=== PATIENT | female | born 1935 | race Caucasian/White ===

== ENCOUNTER 2018-06-06 02:49 | Inpatient (IN) | payer MEDICARE ==
[2018-06-06] MEDS ORDERED: niCARdipine 20MG In NaCl 20 MG/200 ML BAG ONE (03:02)
[2018-06-06 03:52] LABS: Prothrombin Time 13.3 SEC (12.0-14.7)
[2018-06-06 03:53] LABS: PTT 26.2 SEC (22.9-36.1)
[2018-06-06 04:35] LABS: Bilirubin Negative (Negative); Blood, Urine Negative (Negative); Clarity CLOUDY (Clear); Glucose, Urine (Dipstick) Negative (Negative); Leukocyte Trace (Negative); Nitrite Negative (Negative); Protein, Urine (Dipstick) 30 mg/dL (Neg-Trace); Specific Gravity, Urine 1.011 (1.002-1.036); Urobilinogen 0.2 mg/dL (0.2-1.0); pH, Urine 6.5 (5.0-9.0)
[2018-06-06 04:37] LABS: Bacteria/HPF 1+ HPF (None Seen); Hyaline Casts/LPF 0-3 HYALINE CAST LPF (0-3 Hyaline); Pathc Cast-AUWi Flag 0.27 (0-2.49); RBC/HPF 0-3 HPF (0-3); Squamous Epithelial 0-3 HPF (0-3)
[2018-06-06] MEDS ORDERED: cefTRIAXone\\ROCEPHIN 1 GM VIAL ONE (05:17)
[2018-06-06 06:50] VITALS: BMI 21.6
[2018-06-06] MEDS ORDERED: niCARdipine HCl 25 MG in Sodium Chloride 0.9% 250 ML 240 ML IVPB SCH (07:00)
--- NOTE | 2018-06-06 07:01 | CT ---
CERVICAL SPINE CT NONCONTRAST: Date: 06/06/18 INDICATION: Neck pain related to fall. FINDINGS: Moderate multilevel degenerative change throughout the cervical spine is present. There is reversal o f normal cervical spine curvature. No evidence of acute compression fracture or subluxation. IMPRESSION: No acute osseous abnormality of the cervical spine. POS: AWAIS
[2018-06-06] MEDS ORDERED: traMADol HCl 50 MG TAB PO PRN (07:40)
[2018-06-06] MEDS ORDERED: hydrALAZINE 20 MG/ML VIAL SLOW IVP PRN (07:40)
[2018-06-06] MEDS ORDERED: Dextrose 5% in Water 1,000 ML IV PRN (07:40)
[2018-06-06] MEDS ORDERED: Sodium Chloride 0.9% 1,000 ML IV SCH (07:40)
[2018-06-06] MEDS ORDERED: Ondansetron ODT 4 MG TAB PO PRN (07:40)
[2018-06-06] MEDS ORDERED: Ondansetron PF 4 MG/2 ML Vial IVP PRN (07:40)
[2018-06-06] MEDS ORDERED: Dextrose 50% Abboject 50 ML SYRINGE SLOW IVP PRN (07:40)
[2018-06-06] MEDS ORDERED: Acetaminophen 1,000 MG in Premix Bag 1 BAG IVPB SCH (08:00)
--- NOTE | 2018-06-06 08:04 | RAD ---
EXAM: Single view of the chest HISTORY: Confusion; follow-up left pneumothorax COMPARISON: None FINDINGS: Single view of the chest shows a normal sized cardiomediastinal silhouette. Increased inter stitial markings are present. There is no evidence of consolidation, mass, or pleural effusion. The bones are unremarkable. IMPRESSION: No evidence of acute cardiopulmonary disease
--- NOTE | 2018-06-06 08:22 | HP ---
REQUESTING PHYSICIAN: Dr. Kaur. ATTENDING SURGEON: Dr. Johnson. CONSULTATIONS: Neurosurgery, Dr. Briscoe. HISTORY OF PRESENT ILLNESS: The patient is an 82-year-old female who was brought to our emergency department from [facility] where she was taken there after family noted that she had fallen possibly a few hours prior to presenting to that emergency department. The patient was brought there with left-sided chest wall pain and headache, which had resolved by the time she got to our Emergency Department. There, she was noted to have left ribs 4 through 8 fractured with small hemothorax and small subarachnoid hemorrhage, at which time she was transferred to our facility for admission and Neurosurgical consultation. The patient does suffer from dementia, but according to our report she is at her baseline. ALLERGIES: NONE. CURRENT MEDICATIONS: 1. Amlodipine. 2. Atorvastatin. 3. Carvedilol. 4. Donepezil. 5. Gabapentin. 6. Meloxicam. 7. Mirtazapine. 8. Multivitamin. 9. Omeprazole. 10. Sertraline. 11. Vitamin D3. PAST MEDICAL HISTORY: Peripheral neuropathy, DJD, DDD, hypertension, Parkinson's, Alzheimer/dementia, and hyperlipidemia. PAST SURGICAL HISTORY: Bowel resection x2 and hysterectomy. SOCIAL HISTORY: The patient lives at home with family. There is no history of drug, tobacco, or alcohol use. REVIEW OF SYSTEMS: A 10-point review of systems is negative as otherwise stated. PHYSICAL EXAMINATION: VITAL SIGNS: Blood pressure 142/66, respirations 16, oxygen saturation 92% on 2 L via nasal cannula, heart rate 86, temperature 98.3. GENERAL: The patient is resting comfortably in bed. She appears in no distress. She answers questions appropriately from what we can tell without family by. She follows commands. She does become irritated quite quickly. From the ER report, this is her baseline. HEENT: Head is normocephalic and atraumatic. Extraocular motions intact. PERRLA bilaterally. Ears are atraumatic without discharge. Nose is atraumatic without discharge. Oropharynx is clear. NECK: Nontender. Trachea is midline. The patient is able to be cleared out of her pre-hospital C collar. LUNGS: Clear to auscultation with good inspiratory and expiratory effort. HEART: Regular rate and rhythm. ABDOMEN: Soft, flat, and nontender with active bowel sounds. PELVIS: Stable. Of note, the patient did have slight tenderness to palpation to her left chest wall. ABDOMEN: Soft, flat, and nontender. PELVIS: Stable. EXTREMITIES: Neurovascularly intact x4. The patient moves all 4 extremities with ease. BACK: Atraumatic and nontender. LABORATORY FINDINGS: WBCs 10.5, hemoglobin 12.6, hematocrit 37.7, platelets 253. Sodium 141, potassium 3.2, chloride 100, CO2 of 28, BUN 22, creatinine 1.45, glucose 111. LFTs are unremarkable. Troponin 0.029. PT 13, INR 1.0, PTT 26. Urinalysis shows trace protein, trace LE, 11 to 20 wbc's, and 1+ bacteria. RADIOGRAPHIC REPORTS: CT of the brain without contrast shows a small subarachnoid hemorrhage. CT of the C-spine without contrast shows no acute osseous abnormality of the cervical spine. CT of the chest without contrast shows fractures of left ribs 4 through 8. ASSESSMENT: 1. Status post ground level fall. 2. Subarachnoid hemorrhage. 3. Multiple left-sided rib fractures. 4. Acute on chronic kidney injury. 5. Urinary tract infection. 6. History of dementia. 7. History of hypertension. PLAN: Plan will be to admit the patient to the critical care unit for serial exams and repeat head CT this morning. Of note, the patient was put on a Cardene drip last night because of her systolic blood pressure being 190 and we will wean her off this and get her morning medications started in hopes to control this blood pressure better and be able to get her discharged or transferred for placement. The evaluation, examination, laboratory, and radiographic findings will be discussed with Dr. Champion this morning during rounds. Job ID: [id number]
--- NOTE | 2018-06-06 08:22 | CT ---
Exam: CT brain without contrast HISTORY: Subarachnoid hemorrhage COMPARISON: 06/06/2018 at 1:01 AM TECHNIQUE: Multiple contiguous axial images were obtained and a CT of the brain without contrast. FINDINGS: There are scattered hypodensities in the subcortical and periventricular white matter consi stent with small vessel ischemic disease. There is a stable area of hyperdensity in the left parieto-occipital region consistent with a small amount of subarachnoid hemorrhage. There is no evide nce of hydrocephalus or extra-axial fluid collection. The calvarium and overlying soft tissues are unremarkable. The visualized paranasal sinuses and masto id air cells are well aerated. IMPRESSION: Stable subarachnoid hemorrhage
[2018-06-06] MEDS ORDERED: Famotidine 20 MG TAB PO SCH (09:00)
[2018-06-06] MEDS ORDERED: Cyclobenzaprine 10 MG TAB PO PRN (09:00)
[2018-06-06 09:14] VITALS: TEMP 97.8
--- NOTE | 2018-06-06 11:01 | PRG ---
DATE OF SERVICE: SUBJECTIVE: Darlyn Falk suffered a fall, suffered a nonoperative subarachnoid hemorrhage and rib fractures left 4 through 8. She has been observed in ICU. Repeat brain CAT scan this morning does not reveal any changes. The patient has baseline dementia and is at her baseline renal function. She is slightly confused, does not know the date, but she knows that she is in the hospital. She does converse appropriate for her dementia . OBJECTIVE: LUNGS: Clear to auscultation. CARDIAC: Regular rate and rhythm without murmur or gallop. ABDOMEN: Soft, nontender. EXTREMITIES: Unremarkable. LABORATORY DATA: Laboratories were not repeated this morning. ASSESSMENT AND PLAN: The patient is stable from a fall. She can resume her home medication. She will need to be weaned off her Cardene drip and placed on her home medications. She can be discharged home later today or tomorrow pending family discussion. Job ID: [id number]
--- NOTE | 2018-06-06 11:09 | CON ---
DATE OF CONSULTATION: 06/06/2018 HISTORY OF PRESENT ILLNESS: Ms. Darlyn Falk is an 82-year-old female with history significant to include dementia and Parkinson disease. She lives in [place] with her niece, who cares for her. She fell yesterday at home and EMS was called stating that she was sore on the left side of her body. She was taken to [place] ER, where a small subarachnoid hemorrhage was found along with four rib fractures 4 through 8, and she has UTI. Neurosurgery was consulted with small subarachnoid hemorrhage. When I entered the room, she was alert and oriented to person. She is very confused about her location and what is happening with her. Per EMS notes and hospital notes from [place], lenora states that she is at her baseline. REVIEW OF SYSTEMS: A 10-point review of systems has been completed and is negative, otherwise stated in the above HPI. ALLERGIES: NO KNOWN DRUG ALLERGIES. MEDICATIONS: 1. Amlodipine. 2. Atorvastatin. 3. Carvedilol. 4. Donepezil. 5. Gabapentin. 6. Meloxicam. 7. Mirtazapine. 8. Multivitamin. 9. Omeprazole. 10. Sertraline. 11. Vitamin D3. PAST MEDICAL HISTORY: Dementia, Parkinson's, hypertension, hyperlipidemia, esophageal reflux. PAST SURGICAL HISTORY: Bowel resection x2, hysterectomy. SOCIAL HISTORY: The patient denies alcohol, drug or smoking history. PHYSICAL EXAMINATION: VITAL SIGNS: Blood pressure 154/70, heart rate 85, respirations 18, and O2 saturation 92% on 2 L of oxygen. CONSTITUTIONAL: The patient is alert, oriented to person. She is confused and does not appear to be in any visible distress. She does complain of pain in her left side. HEENT: Head is normocephalic and atraumatic. Pupils are equal, round, and reactive to light. Extraocular movements are intact. Hearing is intact. Moist mucous membranes. RESPIRATIONS: Normal work of breathing on room air. Symmetric chest rise. EXTREMITIES: The patient is moving all 4 extremities well. There are no gross deformities. 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 No sensory changes. NEUROLOGIC: The patient is alert, oriented to person. Her speech is spontaneous and fluent. Her long-term memory is intact. Short-term memory is significantly impaired. She has [place] Coma scale of 15. She is following commands well. Cranial nerves 2 through 12 are tested and intact. She has no sensory or motor deficits at this time. IMAGING: CT head shows a small left parieto-occipital subarachnoid hemorrhage. CT chest shows left 4 through 8 rib fractures with a small hemothorax. ASSESSMENT AND PLAN: From a neurosurgical standpoint, Ms. Falk is an 82-year-old female with a small arachnoid hemorrhage without being on any blood thinners. She is neurologically intact. We will have Trauma admit for her other injuries. We will get neuro checks regularly and repeat the CT in 6 to 8 hours following her first scan, 7 or 8 a.m. today would be appropriate. We do not anticipate any surgical intervention necessary for this patient. Maintain blood pressure below 160. No blood thinners. Job ID: [id number]
[2018-06-06] MEDS ORDERED: Acetaminophen 500 MG TAB PO SCH (12:00)
[2018-06-06 16:33] VITALS: BP 150/72
[2018-06-06] MEDS ORDERED: Carvedilol 3.125 MG TAB PO SCH (17:00)
[2018-06-06] MEDS ORDERED: Donepezil HCl 10 MG TAB PO SCH (21:00)
[2018-06-07] MEDS ORDERED: Amlodipine 10 MG TAB PO SCH (09:00)
--- NOTE | 2018-06-07 11:37 | DIS ---
DATE OF ADMISSION: 06/06/2018 DATE OF DISCHARGE: 06/06/2018 ADMISSION DIAGNOSES: 1. Status post ground-level fall. 2. Subarachnoid hemorrhage. 3. Multiple left-sided rib fracture. 4. Acute on chronic kidney injury. 5. Urinary tract infection. 6. History of dementia. 7. History of hypertension. CONSULTATIONS: Neurosurgery, Dr. Briscoe. PROCEDURES: None. HOSPITAL COURSE: The patient is an 82-year-old woman, who was brought to the emergency room at [facility] after she sustained a ground-level fall. The patient had fallen a couple of hours prior to her presentation there. She was evaluated there and noted to have the above injury. She was subsequently transferred to our facility for consultation with Neurosurgery and some pain management for her ribs. The patient was admitted for serial exams to the Critical Care Unit and had a repeat head CT later that morning, which showed a small hemorrhage that was stable. Her pain was adequately controlled. She was able to be discharged home. The patient will follow up with her primary care provider within a week for her urinary tract infection. She can follow up with Dr. Briscoe as directed by his clinic who will contact her and follow up with the Trauma Clinic in 2 weeks with a repeat chest x-ray, sooner as needed. At the time of discharge, the patient's pain was controlled and she was tolerating a diet. She was definitely ready to be discharged per her words. Job ID: [id number]
== END 2018-06-06 16:58 | disposition home or self-care (01) | DRG 65 ==
LOC: ERS 02:49 → CCU 06:35
PROVIDERS: ADMIT Surgery; ATTEND Surgery
DX: I60.9 Nontraumatic subarachnoid hemorrhage, unspecified (principal); S22.42XA Multiple fractures of ribs, left side, initial encounter for closed fracture; N17.9 Acute kidney failure, unspecified; W19.XXXA Unspecified fall, initial encounter; G62.9 Polyneuropathy, unspecified; M19.90 Unspecified osteoarthritis, unspecified site; G30.9 Alzheimer's disease, unspecified; F02.80 Dementia in other diseases classified elsewhere, unspecified severity, without behavioral disturbance, psychotic disturbance, mood disturbance, and anxiety; Z79.899 Other long term (current) drug therapy; G20 Parkinson's disease; E78.5 Hyperlipidemia, unspecified; I12.9 Hypertensive chronic kidney disease with stage 1 through stage 4 chronic kidney disease, or unspecified chronic kidney disease; N18.9 Chronic kidney disease, unspecified; Z90.49 Acquired absence of other specified parts of digestive tract; Z90.710 Acquired absence of both cervix and uterus
CPT/HCPCS: 36415; 70450; 71045; 72125; 81003; 81015; 85610; 85730; J0360; J0696; J7050